=== PATIENT | female | born 1965 | race Caucasian/White ===

== ENCOUNTER 2020-03-26 15:31 | Emergency (ER) | payer OTHER, SELFPAY ==
[2020-03-26 15:39] VITALS: BP 136/80; PULSE 81; RESP 16; TEMP 37; O2SAT 100
--- NOTE | 2020-03-26 15:53 | ED.URI ---
HPI - URI/Sore Throat General Stated Complaint: sinus infection Time Seen by Provider: 03/26/20 15:59 Source: patient History of Present Illness HPI Narrative: Patient presents with nasal congestion sinus pressure cough fever body aches and fatigue for the last week. Patient has tried Sudafed [id number] with minimal relief in her symptoms. 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 Patient denies any shortness of breath and no chest pain. MD elicited complaint: cough Related Data Allergies Allergy/AdvReac Type Severity Reaction Status Date / Time No Known Allergies Allergy Verified 03/26/20 15:41 Review of Systems Review of Systems: Narrative: CONSTITUTIONAL: Denies chills, or sweats. Reports fever and generalized body aches EYES: Denies visual changes, redness, or discharge. ENT: Denies otalgia. Reports nasal congestion runny nose and sore throat CARDIOVASCULAR: Denies chest pain, palpitations, or edema. RESPIRATORY: Denies dyspnea. Reports occasional cough GASTROINTESTINAL: Denies abdominal pain, nausea, vomiting, or diarrhea. GENITOURINARY: Denies dysuria or hematuria. SKIN: Denies rash or itching. MUSCULOSKELETAL: Denies back pain, joint pain, or myalgia. Reports generalized body aches NEUROLOGIC: Denies headache, numbness, or weakness. PSYCHIATRIC: Denies anxiety or depression. [facility] Past Medical History Medical History (Updated 03/26/20 @ 15:58 by PINO Strickland) Colon cancer screening Hypercholesterolemia Vitamin D deficiency Family History Family History Mother Patient's mother is in good health Father Patient's father is in good health Social History Social History Smoking status: Never smoker Alcohol intake: current Comments At time of signature, agree with nursing past medical, surgical, social and family history. There is no relevant family history pertinent to the presenting complaint Exam Narrative: Exam Narrative: The patient is a well-developed, well-nourished in no acute distress. SKIN: Skin is warm and dry without erythema, swelling or exudate. There is good turgor. No tenting. HEAD: Atraumatic. Normocephalic. No temporal or scalp tenderness. EYES: Moist and bright. Sclera and conjunctivae normal. No discharge. PERRLA. Extraocular motions intact. Gross visual acuity intact. EARS: Pinna is normal shape and contour. Clear external auditory canals. TM pearly vasquez with good cone of light, no erythema or suppuration. Bilateral cerumen noted no gross hearing deficit. NOSE: pink, moist mucosa with good air movement. Clear rhinorrhea without nasal flaring. Septum midline. Mild bilateral maxillary sinus tenderness Mouth: moist mucous membranes. THROAT; mild erythema noted to posterior oropharynx with moderate postnasal drainage. Without exudate or ulceration.. Uvula midline. Normal movement of soft palate. NECK: Supple and nontender with full range of motion without discomfort. No meningeal signs. LUNGS: Equal and bilateral breath sounds without wheezes, rales or rhonchi. CHEST: The chest wall is without retractions or use of accessory muscles. HEART: Has a regular rate and rhythm without murmur, gallops, click or rub. ABDOMEN: Soft, nontender with positive active bowel sounds. No rebound tenderness. EXTREMITIES: Without cyanosis, clubbing or edema. Equal 2+ distal pulses and 2 second capillary refill noted. NEUROLOGIC: alert, active, . The patient moves all extremities with normal muscle strength. Normal muscle tone is noted. Normal coordination is noted. NO focal neurological findings noted. Course Vital Signs Vital signs: Vital Signs Temperature 37.0 C 03/26/20 15:39 Pulse Rate 81 03/26/20 15:39 Respiratory Rate 16 03/26/20 15:39 Blood Pressure 136/80 03/26/20 15:39 Pulse Oximetry 100 03/26/20 15:39 Temperature
== END 2020-03-26 16:01 | disposition home or self-care (01) ==
PROVIDERS: Emergency Provider Nurse Practitioner Family; PCP Family Medicine
DX: J01.00 Acute maxillary sinusitis, unspecified (principal); Z20.828 Contact with and (suspected) exposure to other viral communicable diseases; E78.00 Pure hypercholesterolemia, unspecified
CPT/HCPCS: 99213; G0463

== ENCOUNTER 2020-06-07 07:55 | Outpatient (CLI) | payer OTHER, SELFPAY ==
--- NOTE | ~2020-06-07 | MM_ITS ---
EXAMINATION: MM screening alida BI w selina HISTORY: Screening mammogram TECHNIQUE: Craniocaudal and mediolateral oblique 3-D tomosynthesis images were obtained and synthetic 2-D images were generated. Bilateral rotated lateral cc views. CAD analysis was submitted and interp reted. COMPARISON: 04/11/2019 diagnostic right mammogram and limited right breast ultrasound 03/25/2019, 03/21/2018, 03/01/2017 bilateral digital screening mammogram examinations BREAST PARENCHYMAL COMPOSITION: The breasts are heterogeneously dense, which may obscure small masses . FINDINGS: There are scattered bilateral microcalcifications; bilateral magnification views are recomm ended for more definitive evaluation. IMPRESSION: 1. Bilateral microcalcifications 2. Bilateral diagnostic mammography is recommended, with magnification views for better definition of microcalcifications BI-RADS Category 0: Incomplete: Needs additional imaging evaluation. Reviewed, dictated and finalized at location A. N DRIER IMPRESSION: 1. Bilateral microcalcifications 2. Bilateral diagnostic mammography is recommended, with magnification views fo r better definition of microcalcifications BI-RADS Category 0: Incomplete: Needs additional imaging evaluation.
== END 2020-06-07 07:56 | disposition home or self-care (01) ==
LOC: ANHIMG 07:57
PROVIDERS: PCP Family Medicine; Visit Provider Obstetrics & Gynecology
DX: Z12.31 Encounter for screening mammogram for malignant neoplasm of breast (principal); R92.8 Other abnormal and inconclusive findings on diagnostic imaging of breast
CPT/HCPCS: 77063; 77067

== ENCOUNTER 2020-07-02 12:21 | Outpatient (CLI) | payer OTHER, SELFPAY ==
--- NOTE | ~2020-07-02 | MMUS_ITS ---
EXAMINATION: MM diagnostic mammo BI, US breast BI complete HISTORY: Bilateral microcalcifications reported on 06/07/2020 screening mammogram TECHNIQUE: Additional 3-D tomosynthesis images of both breasts were performed and synthetic 2-D image s were generated. Bilateral magnification views. CAD analysis was submitted and interpreted. High res olution complete bilateral breast ultrasound was performed. COMPARISON: 06/07/2020 bilateral digital screening mammogram FINDINGS: MAMMOGRAPHIC FINDINGS: There are numerous scattered bilateral benign-appearing microcalcifications, some solitary, many in g roups. Most are rounded and punctate. No malignant features are evident. Heterogeneously dense stroma may obscure masses. Bilateral complete breast ultrasound examination was performed. ULTRASOUND: Right breast: 12:00: 4 x 2.8 x 3.7 mm sonolucency, without internal vascularity, consistent with a small cyst Left breast: 3.2 x 3.1 mm rounded sonolucency without internal vascularity, consistent with small cys t No suspicious mass or shadowing of either breast is evident. IMPRESSION: 1. No mammographic evidence of malignancy 2. Routine annual mammographic screening is recommended. BI-RADS Category 2: Benign finding(s). Reviewed, dictated and finalized at location A. AUDITOR IMPRESSION: 1. No mammographic evidence of malignancy 2. Routine annual mammographic screening is recommended. BI-RADS Category 2: Benign finding(s).
== END 2020-07-02 12:22 | disposition home or self-care (01) ==
PROVIDERS: PCP Family Medicine; Visit Provider Obstetrics & Gynecology
DX: N63.15 Unspecified lump in the right breast, overlapping quadrants (principal); N63.20 Unspecified lump in the left breast, unspecified quadrant
CPT/HCPCS: 76641; 77066

== ENCOUNTER 2021-06-09 16:24 | Outpatient (CLI) | payer OTHER, SELFPAY ==
--- NOTE | ~2021-06-09 | MM_ITS ---
EXAMINATION: MM screening alida BI w selina HISTORY: Screening TECHNIQUE: Craniocaudal and mediolateral oblique 3-D tomosynthesis images were obtained and synthetic 2-D images were generated. CAD analysis was submitted and interpreted. COMPARISON: Comparison to multiple prior studies sequentially, with oldest reviewed study dated 02/18. BREAST PARENCHYMAL COMPOSITION: There are scattered areas of fibroglandular density. FINDINGS: There is no evidence of suspicious mass, calcification, or architectural distortion to sugg est malignancy in either breast. There has been no suspicious interval change. IMPRESSION: 1. No mammographic evidence of malignancy. 2. Recommend routine screening mammography in one year. BI-RADS Category 1: Negative Reviewed, dictated and finalized at location A. MOLD MACHINE OPERATOR
== END 2021-06-09 16:25 | disposition home or self-care (01) ==
LOC: ANHIMG 16:26
PROVIDERS: PCP Family Medicine; Visit Provider Obstetrics & Gynecology
DX: Z12.31 Encounter for screening mammogram for malignant neoplasm of breast (principal)
CPT/HCPCS: 77063; 77067

== ENCOUNTER 2022-11-15 10:31 | Emergency (ER) | payer OTHER, SELFPAY ==
--- NOTE | ~2022-11-15 | XR_ITS ---
EXAMINATION: XR hand RT min 3V INDICATION: Right hand pain TECHNIQUE: Three views of the right hand are obtained. COMPARISON: None available FINDINGS: Bone alignment is normal. There is no fracture. 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 The soft tissues are unremarkable. IMPRESSION: 1. No acute osseous abnormality. Reviewed, dictated and finalized at location []
[2022-11-15 10:42] VITALS: BP 150/96; PULSE 84; RESP 16; TEMP 36.9; O2SAT 99
--- NOTE | 2022-11-15 11:23 | ED.UPPEXIN ---
HPI - Extremity Injury (Upper) General Chief Complaint: Extremity Injury, Upper Stated Complaint: R HAND INJURY Time Seen by Provider: 11/15/22 11:25 Source: patient Mode of arrival: ambulatory Limitations: no limitations History of Present Illness HPI narrative: 57-year-old female presented for complaint of right hand pain to the middle, ring and little fingers after injury last night. She states she tripped in her garage while attempting to walk underneath the garage door, and landed on the right hand pending the fingers back. She endorses bruising and swelling with slight decreased range of motion. She has taken ibuprofen. She denies numbness, tingling, or weakness. Related Data Home Medications Medication Instructions Recorded Confirmed No Home Medications 11/15/22 11/15/22 Allergies Allergy/AdvReac Type Severity Reaction Status Date / Time No Known Allergies Allergy Verified 11/15/22 11:03 Review of Systems Review of Systems: CONSTITUTIONAL: Denies body aches, fever, chills EYES: Denies visual changes ENT: Denies rhinorrhea, congestion CARDIOVASCULAR: Denies chest pain, palpitations, or edema. RESPIRATORY: Denies cough or dyspnea. GASTROINTESTINAL: Denies abdominal pain, nausea, vomiting, or diarrhea. SKIN: Denies rash, itching, or wounds. MUSCULOSKELETAL: per HPI NEUROLOGIC: Denies headache, numbness, tingling, or weakness. All systems reviewed & are unremarkable except as noted in HPI and below PMFSH Past Medical History Medical History Colon cancer screening Hypercholesterolemia Vitamin D deficiency Family History Family History Mother Patient's mother is in good health Father Patient's father is in good health Social History Social History Smoking status: Never smoker Alcohol intake: current Comments At time of signature, I have reviewed and agree with nursing past medical, surgical, social and family history unless otherwise noted. Please see nursing chart for further information. There is no relevant family history pertinent to the presenting complaint Exam Narrative: GENERAL: Well-appearing, well-nourished, and in no acute distress. CHEST: Speaks in full sentences. No respiratory distress. HEART: Regular rate and rhythm. Normal and equal peripheral pulses. EXTREMITIES: Right hand has Mild swelling, ecchymosis, and tenderness to 3rd 4th and 5th MCPs; slightly decreased range of motion at MCPs due to pain with movement. 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 Hand and fingers with normal sensation. No open wounds, or obvious deformity; alignment normal, pulse palpable and equal bilaterally, skin warm, dry, pink. Capillary refill less than 3 seconds. SKIN: Warm, dry, no rash. NEURO: Alert and oriented x3. PSYCH: Normal mood and affect Course Course Emergency Course: Patient is aware of diagnosis, understands and agrees to treatment plan. Anticipatory guidance given. Patient agrees to follow-up as directed and is aware of reasons to seek care at the emergency department. Portions of this record may have been created with voice recognition software Level of Care: Express Care Visit Vital Signs Vital signs: Vital Signs Temperature 98.5 F 11/15/22 10:42 Pulse Rate 84 11/15/22 10:42 Respiratory Rate 16 11/15/22 10:42 Blood Pressure 150/96 H 11/15/22 10:42 Pulse Oximetry 99 11/15/22 10:42 Temperature 98.5 F 11/15/22 10:42 Pulse Rate 84 11/15/22 10:42 Respiratory Rate 16 11/15/22 10:42 Blood Pressure 150/96 H 11/15/22 10:42 Pulse Oximetry 99 11/15/22 10:42 Oxygen Delivery Room Air 11/15/22 10:54 Reviewed MDM - Extremity Injury (Upper) MDM Narrative Medical decision making narrative: Results of x-ray reviewed with patient. Eduardo yipap applanika
--- NOTE | 2022-11-15 11:38 | PC.NURSE ---
+PMS POST FERMIN APPLICATION
== END 2022-11-15 11:38 | disposition home or self-care (01) ==
PROVIDERS: Emergency Provider Nurse Practitioner Family; PCP Internal Medicine
DX: S63.652A Sprain of metacarpophalangeal joint of right middle finger, initial encounter (principal); W01.0XXA Fall on same level from slipping, tripping and stumbling without subsequent striking against object, initial encounter; E78.00 Pure hypercholesterolemia, unspecified
CPT/HCPCS: 73130; 99213; G0463

== ENCOUNTER 2023-01-24 15:58 | Outpatient (CLI) | payer OTHER, SELFPAY ==
--- NOTE | ~2023-01-24 | MM_ITS ---
EXAMINATION: MM screening alida BI w selina HISTORY: Screening mammogram TECHNIQUE: Craniocaudal and mediolateral oblique 3-D tomosynthesis images were obtained and synthetic 2-D images were generated. CAD analysis was submitted and interpreted. COMPARISON: 04/09/2022 bilateral screening mammogram To bilateral diagnostic mammography and bilateral complete breast ultrasound examination 06/07/2020 bilateral screening mammogram BREAST PARENCHYMAL COMPOSITION: There are scattered areas of fibroglandular density. FINDINGS: Scattered bilateral punctate benign-appearing microcalcifications. There is no evidence of suspicious mass, calcification, or architectural distortion to suggest malignancy in either breast. T here has been no suspicious interval change. IMPRESSION: 1. No mammographic evidence of malignancy. 2. Recommend routine screening mammography in one year. BI-RADS Category 2: Benign finding(s). Reviewed, dictated and finalized at location A.
== END 2023-01-24 15:59 | disposition home or self-care (01) ==
LOC: ANHIMG 16:01
PROVIDERS: PCP Internal Medicine; Visit Provider Obstetrics & Gynecology
DX: Z12.31 Encounter for screening mammogram for malignant neoplasm of breast (principal)
CPT/HCPCS: 77063; 77067

== ENCOUNTER 2023-12-06 10:45 | Emergency (ER) | payer OTHER, SELFPAY ==
--- NOTE | 2023-12-06 10:46 | ED.FEMALEGU ---
HPI - Female Genitourinary General Chief complaint: Urogenital-Female Stated complaint: Uti Symptoms Time Seen by Provider: 12/06/23 10:46 Source: patient Mode of arrival: ambulatory Limitations: no limitations History of Present Illness HPI Narrative: Awilda is a 58-year-old female patient presenting to the clinic today with complaints of UTI like symptoms for 2 days. She was recently treated for a sinus infection with amoxicillin when she noticed her urinary symptoms started shortly afterwards. She started taking OTC azo yesterday. She reports urinary frequency, urgency, and burning with urination. She also reports mild flank pain. She denies any fevers/chills, SOB, chest pain, or genital itching. Related Data Allergies Allergy/AdvReac Type Severity Reaction Status Date / Time No Known Allergies Allergy Verified 12/06/23 10:55 Review of Systems Review of Systems: Pertinent positives per HPI. Patient denies any fever, chills, rash, headache, visual changes, dizziness, cough, runny nose, sore throat, shortness of breath, chest pain, palpitations, nausea, vomiting, diarrhea, constipation, abdominal pain PMFSH Past Medical History Medical History Colon cancer screening Hypercholesterolemia Vitamin D deficiency Family History Family History Mother Patient's mother is in good health Father Patient's father is in good health Social History Social History Smoking status: Never smoker Alcohol intake: current Comments At the time of my signature, I reviewed and agree with the nursing past medical, surgical, social, and family history. There is no relevant family history pertinent to the patient complaint. Exam Narrative: General: Well-developed, well nourished, in no apparent distress. Head: Normocephalic, atraumatic. Cardio: Regular rate and rhythm, s1 and s2 normal, no murmur appreciated. Resp: Clear to auscultation bilaterally, no rhonchi, rales, wheezing or rubs. Abdomen: No CVA tenderness Course Course Emergency Course: Portions of this record may have been created with voice recognition software. Level of Care: Express Care Visit Vital Signs Vital signs: Vital signs reviewed MDM - Female Genitourinary MDM Narrative Medical decision making narrative: At the time of visit patient is resting comfortably on the exam table. Patient appears to be nontoxic. Labs: UA is positive for trace of blood, leukocytes, and nitrates. Will send for culture. Plan: I suspect patient has urinary tract infection. Prescription for Bactrim was sent to the pharmacy. Supportive measures were discussed with the patient and they voiced understanding discharge instructions and agrees to treatment plan. Return precautions reviewed Differential Diagnosis Differential diagnosis: Likely urinary tract infection, cystitis and other (Pyelonephritis) Discharge Plan Discharge Clinical Impression: UTI (urinary tract infection) Qualifiers: Urinary tract infection type: acute cystitis Hematuria presence: with hematuria Qualified Code(s): N30.01 - Acute cystitis with hematuria Patient Disposition: Home, Self-Care Condition: Stable Instructions: Antibiotic Form, Urinary Tract Infection in Women (ED) Additional Instructions: UA positive for leukocytes, blood, and nitrates. We will send urine for culture. Take Bactrim as prescribed Increase fluids and stay well hydrated Wipe front to back. May use wet wipes. Avoid tub baths If sexually active- pee before and after intercourse. Wear cotton panties Avoid tight clothing up against the genitals Follow up with your PCP in 1 week if symptoms persist. Prescriptions: New sulfamethoxazole-trimethoprim [Bactrim DS] 800-160 mg tablet 1 tablet PO Q12H 5 Days Qty: 10 0RF
[2023-12-06 10:52] VITALS: BP 143/86; PULSE 85; RESP 16; TEMP 37.1; O2SAT 96
[2023-12-06 12:10] LABS: EDUAAPPEAR Clear; EDUABILI Negative; EDUABLOOD Trace; EDUACOLOR1 Orange; EDUAGLUCOSE Negative; EDUAKETONE Negative; EDUALEUKO 3+; EDUANITRATE Positive; EDUAPH 5.5; EDUAPROTEIN Negative
== END 2023-12-06 11:22 | disposition home or self-care (01) ==
PROVIDERS: Emergency Provider Nurse Practitioner Family; PCP Internal Medicine
DX: N30.01 Acute cystitis with hematuria (principal); B96.20 Unspecified Escherichia coli [E. coli] as the cause of diseases classified elsewhere; E78.00 Pure hypercholesterolemia, unspecified
CPT/HCPCS: 81003; 87077; 87086; 87088; 87186; 99213; G0463

== ENCOUNTER 2024-05-06 09:07 | Outpatient (CLI) | payer OTHER, SELFPAY ==
--- NOTE | ~2024-05-06 | XR_ITS ---
XR shoulder LT min 2V Ordering provider: Mone Wong APRN History: . Pain in left shoulder and neck after falling off of a chair . Comparison: None. FINDINGS: BONES: No acute fracture or dislocation. JOINT SPACES: The acromioclavicular joint is normal. The glenohumeral joint is normal. SOFT TISSUES: Normal. IMPRESSION: No acute osseous abnormality left shoulder. Reviewed, dictated and finalized at location A. ET ASSEMBLY PRESS SETTER OPERATOR
--- NOTE | ~2024-05-06 | XR_ITS ---
[id number] Ordering provider: Mone Wong APRN History: . M54.2 - Cervicalgia . Comparison: None. FINDINGS: VERTEBRAL BODIES: Normal height and alignment. No visible fracture or subluxation. The dens is intact . DISK SPACES: Narrowing of C5-C6. Uncovertebral joint osteoarthritic changes at the same level. Facet joint disease seen at the level of C7-T1. A PARASPINOUS SOFT TISSUES: No prevertebral soft tissue swelling. IMPRESSION: No acute osseous abnormality cervical spine. Degenerative disc disease at the level of C5-C6. Reviewed, dictated and finalized at location A. ED FRUIT PACKER
== END 2024-05-06 09:08 | disposition home or self-care (01) ==
LOC: ANHBWCIMG 09:09
PROVIDERS: PCP Nurse Practitioner Adult Health; Visit Provider Nurse Practitioner Adult Health
DX: M25.512 Pain in left shoulder (principal); M50.322 Other cervical disc degeneration at C5-C6 level
CPT/HCPCS: 72040; 73030

== ENCOUNTER 2024-06-20 14:36 | Outpatient (CLI) | payer OTHER, SELFPAY ==
--- NOTE | ~2024-06-20 | MM_ITS ---
EXAMINATION: MM screening [facility] BI w selina HISTORY: Screening TECHNIQUE: Craniocaudal and mediolateral oblique 3-D tomosynthesis images were obtained and synthetic 2-D images were generated. CAD analysis was submitted and interpreted. COMPARISON: Comparison to multiple prior studies sequentially, with oldest reviewed study dated 09/2018. BREAST PARENCHYMAL COMPOSITION: There are scattered areas of fibroglandular density. FINDINGS: There is no evidence of suspicious mass, calcification, or architectural distortion to sugg est malignancy in either breast. There has been no suspicious interval change. IMPRESSION: 1. No mammographic evidence of malignancy. 2. Recommend routine screening mammography in one year. BI-RADS Category 1: Negative Reviewed, dictated and finalized at location A. NG ROOM OPERATOR
--- OUTSIDE RECORDS SUMMARY | 2024-06-20 14:42 | XMS_ITS | Data Portability ---
Author Organization [place] [facility], Main Office Address [address] [place] [address] Care Team Providers Care Pulp Operator Name Role Phone REMA KATE Primary Care Provider REMA KATE Referring Provider [phone] Assessment Encounter Date Assessment Date Assessment LastModified by Organization Details LastModified Time 03/19/2023 03/19/2023 HPI: 57-year-old female came in for evaluation of her right 3rd 4th and 5th finger. she injured these fingers in October of this year. She states that she was running to beat the garage door from closing when she fell and her hand hit the ground and these 3 fingers hit the ground and were hyper extended very quickly. She had immediate pain in the 3 fingers. She started noticing swelling in the fingers and the MP joints. The next day on 11/15 she went to the emergency room had x-rays done which I reviewed. They show no fractures in the fingers. There is no evidence of injury to the joints. Her chief complaint is that she still has problems extending her fingers without discomfort. 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 Physical exam: Patient has no swelling in the fingers hand or wrist. Full range of motion of the wrist. She has flexion of all of her fingers actively. She is not able to make a complete tight fist yet. She has pain with extension especially hyperextension of the fingers. She very easily hyperextends the left hand to almost 90? ? ? in all of her fingers. On the left hand her index finger does this very easily but she has pain with extension of the long ring and small finger. The ring finger is the stiffest. I am able to extend her up almost 80? ? ? but it is uncomfortable for her. No swelling in the fingers. She has some mild tenderness to the PIP joints in these 3 fingers. There is no increase swelling in the joints. No redness or warmth noted anywhere. Impression: Patient had hyperextension injury to the 3rd 4th and 5th finger in the left hand back in October. She does have full flexion of all her fingers but is still lacking hyper extension that she is used to. She is able hyperextend them but it is sore and painful to do this. She states after the injury her fingers are quite swollen for a while and I think this is just residual stiffness from this. There is no bony abnormalities noted on the x-rays. I recommended that she work hard on passively stretching her fingers in extension every day. This will stretch out the tendons and should get her lot more comfortable. 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 She was concerned about fracture is being missed on the x-rays and I assured her that I see nothing on the x-rays that were taken. She is comfortable with all this and is going to work on stretching the fingers out. If she has any questions concerns or if things worsen she will call otherwise we will see her back as needed. [email or web address] Not available 03/19/2023 18:33:34 Plan of Treatment Reminders Order Date Submit Date Provider Last Modified By Organization Details Last Modified Time Details Appointments None record ed. Lab None record ed. Referral None record ed. Procedures None record ed. Surgeries None record ed. Imaging None record ed. Medication Orders None record ed. Patient TargetsNo targets recorded. Patient InstructionsNo instructions recorded. Reason for Referral None Reported. Results Created Date Observation Date Name Description Value Unit Range Abnormal Flag Note LastModifiedBy Organization Detail LastModifiedTime 02/01/2001/31/2022 kishore esquivel am No observ ation record ed. [id number].[id number] [facility] [address] [place], [place], [address], 07/20/2022 00:31:46 02/01/20 kishore esquivel am No observ ation record ed. [id number].[id number] [facility] [address] [place], [place], [address], 07/20/2022 00:31:46 11/16/19 23 11/15/2022 XR, hand No observ ation record ed. [address], [place], [address], 06/09/2023 12:45:23 01/25/20 23 01/24/2023 MAMMO , scree clarisa, digit al, bilat eral No observ ation record ed. [address], [place], [address], 06/09/2023 12:45:24 03/19/20 23 11/15/2022 XR, hand No observ ation record ed. [email or web address] Not Available 2022 18:39:10 08/31/19 24 08/31/2023 XR, foot, 3 or more view No observ ation record ed. [email or web address] [address], [address], 12/04/2023 08:44:12 Result Notes None recorded. Problems Name Problem SNOMED Code Status Onset Date Resolution Date Notes Provider Name and Address Organization Details Recorded Time Adult health examinatio n Active 2021 Not Available [facility] 3 00:29:45 Cough 80241683 Active 2021 Not Available [facility] 3 00:29:45 Hand pain 20704755 Active 2022 Dolores lopez, [facility] 3 17:13:19 Pain in right hand 1844077012120 09 Active 2022 ZEKE Brandon, [facility] 3 16:47:15 Problem Notes None recorded. Procedures Surgical History Date Name Laterality Status Provider Name and Address Organization Details Recorded Time Foot Surgery completed Not Available [facility] 07/20/2022 00:28:29 Hysterectomy completed Not Available [facility] 07/20/2022 00:28:29 [place] [facility] 00:28:29 Appendectomy completed Not Available [facility] 07/20/2022 00:28:29 completed Not Available [facility] 0 07/20/2022 00:28:29 Imaging Results Imaging Date Name Status LastModified by Organization Details LastModified Time 01/31/2022 electrocardiogram completed MIGRATION. [id number] [facility] [address] [place], [address], 07/20/2022 00:31:46 01/31/2022 electrocardiogram completed MIGRATION. [id number] [facility] [address] [place], [place], [address], 07/20/2022 00:31:46 11/15/2022 XR, hand completed [address], [address], 06/09/2023 12:45:23 01/24/2023 MAMMO, screening, digital, bilateral completed [address], [address], 06/09/2023 12:45:24 11/15/2022 XR, hand completed [email or web address] Information no t available 03/19/2023 18:39:10 08/31/2023 XR, foot, 3 or more view completed [email or web address] [address], [address], 12/04/2023 08:44:12 Procedure Notes None recorded. Medical Equipment None Reported. Allergies No known drug allergies Medications Name Sig Start Date Stop Date Status Note LastModified by Organization Details LastModified Time azithromyci n 250 mg tablet TK 2 TS PO ON DAY 1, THEN TK 1 T PO D FOR 4 DAYS 06/28 completed Not Available Not Available Not Available benzonatate 200 mg capsule TAKE 1 CAPSULE BY MOUTH THREE TIMES DAILY 01/31 completed Not Available Not Available Not Available prednisone 20 mg tablet TAKE 2 TABLETS BY MOUTH EVERY DAY 01/31 completed Not Available Not Available Not Available benzonatate 100 mg capsule TAKE 1 CAPSULE BY MOUTH THREE TIMES DAILY NEEDED FOR COUGH 06/28 completed Not Available Not Available Not Available erythromyci n 5 mg/gram (0.5 %) eye ointment 03/19 completed Not Available Not Available Not Available mupirocin 2 % topical ointment APPLY TOPICALLY TO THE AFFECTED AREA THREE TIMES DAILY FOR 10 DAYS 06/28 completed Not Available Not Available Not Available methylpredn isolone 4 mg tablets in a dose pack FOLLOW PACKAGE DIRECTION S 01/31 completed Not Available Not Available Not Available amoxicillin 875 mg-potassiu m clavulanate 125 mg tablet TAKE 1 TABLET BY MOUTH EVERY 12 HOURS 03/19 completed Not Available Not Available Not Available Vitals Date Recorded Body mass index (BMI) Body mass index (BMI) Body height Body height Heart rate Heart rate Body temperature Body temperature Body weight Body weight Systolic blood pressure Diastolic blood pressure Systolic blood pressure Diastolic blood pressure Provider Name and Address Organization Details Last Updated DateTime 3 34.3 kg/m2 34.7 kg/m2 162.56 cm 162.56 cm 72 /min 96 /min 97.7 [degF] 97.6 [degF] 24065.4 7 g 07373.6 6 g 126 mm[Hg] 70 mm[Hg] 124 mm[Hg] 76 mm[Hg] Not Available [facility] 00:28:50 Social History Question Answer Notes LastModified by Organizat ion Details LastModified Time Tobacco Smoking Status Never Smoker Not Available [facility] 07/20/2022 00:27:54 Do You Have An Advance Directive? No MIGRATION.41645 [id number] Information not available 07/20/2022 What Is Your Level Of Alcohol Consumption? Occasional MIGRATION.38958 46645 Information not available 07/20/2022 Do You Wear A Helmet When Biking? No MIGRATION.03845 15611 Information not available 07/20/2022 What Is Your Level Of Caffeine Consumption? Moderate MIGRATION.62267 41660 Information not available 07/20/2022 In The 14 Days Before Symptom Onset, Have You Had Close Contact With A Laboratory-confi rmed COVID-19 While That Case Was Ill? No MIGRATION.01885 61062 Information not available 07/20/2022 In The 14 Days Before Symptom Onset, Have You Had Close Contact With A Person Who Is Under Investigation For COVID-19 While That Person Was Ill? No MIGRATION.34205 82873 Information not available 07/20/2022 What Type Of Diet Are You Following? REGULAR MIGRATION.98117 71109 Information not available 07/20/2022 What Is The Highest Grade Or Level Of School You Have Completed Or The Highest Degree You Have Received? 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 No MIGRATION.79647 34507 Information not available 07/20/2022 What Is The Fluoride Status Of Your Home? Unknown MIGRATION.85196 04816 Information not available 07/20/2022 Are There Any Guns Present In Your Home? Yes MIGRATION.19528 72352 Information not available 07/20/2022 Do You Use Insect Repellent Routinely? Yes MIGRATION.72345 50168 Information not available 07/20/2022 Where Do You Live? [facility] MIGRATION.14157 94490 Information not available 07/20/2022 Do You Have A Medical Power Of Youth Pastor? No MIGRATION.83442 19373 Information not available 07/20/2022 What Was The Date Of Your Most Recent Tobacco Screening? 01/31/2022 MIGRATION.64853 34552 Information not available 07/20/2022 Have You Ever Been Counseled For Unhealthy Alcohol Use? No MIGRATION.94736 52351 Information not available 07/20/2022 Do You Have Any Pets? Yes MIGRATION.75778 09529 Information not available 07/20/2022 What Is Your Relationship Status? MIGRATION.70732 24650 Information not available 07/20/2022 Do You Use Your Seat Belt Or Car Seat Routinely? Yes MIGRATION.43437 11043 Information not available 07/20/2022 Do You Have Smoke And Carbon Monoxide Detectors In Your Home? Yes MIGRATION.58040 46368 Information not available 07/20/2022 Are You Passively Exposed To Smoke? No MIGRATION.84862 82591 Information not available 07/20/2022 Are There Any Smokers In Your House? No MIGRATION.13257 99203 Information not available 07/20/2022 What Types Of Sporting Activities Do You Participate In? None MIGRATION.68183 86293 Information not available 07/20/2022 Do You Feel Stressed (tense, Restless, Nervous, Or Anxious, Or Unable To Sleep At Night)? SN75223-3 MIGRATION.07964 05426 Information not available 07/20/2022 Do You Use Any Illicit Or Recreational Drugs? No MIGRATION.11323 70780 Information not available 07/20/2022 Do You Use Sunscreen Routinely? Yes MIGRATION.00211 80844 Information not available 07/20/2022 Has Tobacco Cessation Counseling Been Provided? No Not Needed-ne diana Smoked MIGRATION.87550 14496 Information not available 07/20/2022 Have You Recently Traveled Abroad? No MIGRATION.63932 43975 Information not available 07/20/2022 Do You Have Any Dietary Restrictions? No MIGRATION.71067 48404 Information not available 07/20/2022 Do You Or Have You Ever Used Any Other Forms Of Tobacco Or Nicotine? No MIGRATION.64580 96076 Information not available 07/20/2022 Sex: Female Functional Status Question Answer Note LastModified by Organizat ion Details LastModified Time What is your exercise level? Occasional MIGRATION.[id number] 26 Information not available 07/20/2022 Mental Status None recorded. Family History Relationship Description Onset Age of this Age Resolved Age Notes LastModified by Organization Details LastModified Time Mother Hypertensive disorder MIGRATION.379 [id number] Not available 07/20/2022 00:28:31 Mother Hypercholest erolemia MIGRATION.213 [id number] Not available 07/20/2022 00:28:31 Father Hypertensive disorder MIGRATION.922 [id number] Not available 07/20/2022 00:28:31 Father Diabetes mellitus MIGRATION.284 [id number] Not available 07/20/2022 00:28:31 Father Cardiac pacemaker procedure MIGRATION.671 [id number] Not available 07/20/2022 00:28:31 Sister Malignant tumor of breast 51 MIGRATION.732 [id number] Not available 07/20/2022 00:28:31 Daughter Asthma 3 MIGRATION.049 [id number] Not available 07/20/2022 00:28:31 Paternal Grandmother Diabetes mellitus MIGRATION.121 [id number] Not available 07/20/2022 00:28:31 Medical History Condition Response NERVE DISEASE N BLINDNESS N RHEUMATIC FEVER N KIDNEY STONES N BLADDER PROBLEMS N MRSA N OTHER # 1 N POLIO N LUNG DISEASE/DISORDER N HISTORY OF DRUG ABUSE N COPD N RADIATION / CHEMOTHERAPY N Other # 2 N BLOOD DISEASES N EAR OR HEARING PROBLEMS N MUMPS N SHINGLES N BOWEL PROBLEMS N DEPRESSION (INCLUDING POST ) N STROKE/TIA N ULCERS N BENIGN PROSTATIC HYPERPLASIA N MEASLES N HYPOTENSION N MYOCARDIAL INFARCTION N OBESITY N GERD/NAUSEA N ANEURYSM N URINARY/BLADDER/KIDNEY PROBLEMS N CORONARY ARTERY DISEASE (CAD) N ADDICTION CONCERNS N ENDOMETRIOSIS N Impotence N USE OF BLOOD THINNERS N SKIN PROBLEMS N GASTROINTESTINAL DISORDER N PERIPHERAL VASCULAR DISEASE N MUSCLE,JOINT OR BONE PROBLEMS N GASTROINTESTINAL BLEEDING N BLOOD CLOTS N ASTHMA N CATARACTS N ERECTILE DYSFUNCTION N VARICOSITIES N GI PROBLEMS N Low Testosterone N INFERTILITY N AIDS/HIV N CHEMOTHERAPY / RADIATION N LIVER DISEASE N MALE HYPOGONADISM N HYPERTENSION N Deficiency N TOURETTE'S N ANXIETY DISORDER N BLOOD TRANSFUSION N ANEMIA/BLOOD DISORDER N CHRONIC EAR INFECTIONS N BRONCHITIS N TUBERCULOSIS N GLAUCOMA N FOOT PROBLEM N DIVERTICULITIS N CHICKENPOX N SLEEP APNEA N INFECTIOUS DISEASE N HEART ARRHYTHMIA N PROSTATE N INSOMNIA N HIGH CHOLESTEROL / HYPERLIPIDEMIA N HYPERTHYROIDISM N EYE PROBLEMS N EDEMA N CHRONIC PAIN SYNDROME N HYPOTHYROIDISM N CAROTID BLOCKAGE N CONSTIPATION N BACK / NECK PROBLEMS Y ATHEROSCLEROSIS N BREAST PROBLEMS N DIALYSIS N ECZEMA N OSTEOPOROSIS N ARTHRITIS N APPENDICITIS N DIABETES, TYPE N BAD TEETH N ENT N HEARTBURN / REFLUX N AUTISM SPECTRUM DISORDER (ASD) N HEPATITIS / LIVER DISEASE N GOUT N SLEEP DISORDER N ALZHEIMER'S DISEASE N Brain Problems N HERPES N DEMENTIA N HEADACHES/MIGRAINES N SEIZURES/EPILEPSY N VASCULAR DISEASE N PACEMAKER N Blood Disorder N DIZZINESS N HEART DISEASE/HEART PROBLEMS N KIDNEY DISEASE N MULTIPLE SCLEROSIS N CARDIAC ARRHYTHMIA N CANCER: SPECIFY N ATRIAL FIBRILLATION N Gall Stones N PULMONARY EMBOLISM N AUTOIMMUNE DISEASE N Gynecological HistoryNo gynecological history recorded. Obstetrics History GPAL:G 0 P 0 0 0 0 Immunizations Vaccine Type Date Status Note Provider Nam e and Address Organization Details Recorded Time COVID-19, mRNA, LNP-S, PF, 30 mcg/0.3 mL dose 07/16/2020 completed Not Available [facility] 00:31:26 COVID-19, mRNA, LNP-S, PF, 30 mcg/0.3 mL dose 06/25/2020 completed Not Available [facility] 00:31:26 Past Encounters Encounter ID Performer Location Encounter Start Date Encounter Closed Date Diagnosis/Indication Diagnosis SNOMED-CT Code Diagnosis ICD10 Code Diagnosis Note [id number] [facility] [address] [place] [address] 06/28/2021 00:00:00 06/28/2021 22:49:37 [id number] [facility] [address], [place] [address] 01/31/2022 00:00:00 01/31/2022 23:56:25 [id number] JOVANNI Lacey [facility] [address] [place] [address] 03/19/2023 16:32:18 03/19/2023 18:45:07 Pain in right hand 7040012270 64377 M79.641 Health Concerns Section Related Observation LastModified by Organization Detai ls LastModified Time None Recorded Concern Status LastModified by Organization Details LastModified Time None Recorded Advance Directives Directive N: Payers Encounter Date Sequence Insurance Name Policy Number Policy Coleman Covered Member ID Coleman Member ID Guarantor Name 03/19/2023 1 [facility] (POS II) [id number] hCun Martinez [id number] Awilda Martinez OBGyn Episode No OBEpisode recorded.
--- OUTSIDE RECORDS SUMMARY | 2024-06-20 14:42 | XMS_ITS | Clinical Summary ---
Author Organization [facility] [facility] Address [address] [place] [address] Care Team Providers Care Smoking Tobacco Cutter Operator Name Role Phone Unavailable Primary Care Provider Unavailabl e Source Comments [facility],non-owned Affiliates and Associated Physician Practices is amultiple site organization consisting of ambulatory clinics and hospital sitesin [place] and [place]. This disclosure is being madepursuant to the Care Everywhere program and may not contain all information available regarding this patient. Last updated 18.[employer] Allergies No known active allergies Medications Be aware that medications may not be up to date on this document. Always verify current medications with the patient. No known medications Family History Medical History Relation Name Comments Diabetes - Type 2 Father Hypertension Mother Relation Name Status Comments Father Mother Social History Tobacco Use Types Packs/Day Years Used Date Smoking Tobacco: Never Smokeless Tobacco: Never Sex and Gender Information Value Date Recorded Sex Assigned at Not on file Gender Identity Not on file Sexual Orientation Not on file Last Filed Vital Signs Vital Sign Reading Time Taken Comments Blood Pressure 126/78 04/01/2018 10:42 AM COMPENSATOR Pulse 76 04/01/2018 10:42 AM COMPENSATOR Temperature 36.7 ??C (98.1 ??F) 04/01/2018 10:[address] Respiratory Rate 16 04/01/2018 10:42 AM COMPENSATOR Oxygen Saturation 98% 04/01/2018 10:42 AM COMPENSATOR Inhaled Oxygen Concentration - - Weight 79.4 kg (175 lb) 04/01/2018 10:42 AM COMPENSATOR Height 162.6 cm (5' 4 ) 04/01/2018 10:42 AM COMPENSATOR Body Mass Index 30.04 04/01/2018 10:42 AM COMPENSATOR Plan of Treatment Health Maintenance Due Date Last Done Comments COLOGUARD (AGES 45-75) - COL ON CA SCREENING 1966 COLON MONITORING 1966 COLONOSCOPY - COLON CA SCREENING 1966 CT COLONOGRAPHY - COLON CA SCREENING 1966 Colorectal Cancer Screening 1966 FIT - COLON CA SCREENING 1966 FLEX SIG - COLON CA SCREENING 1966 LIPID TESTING 1966 MAMMOGRAM 1966 PAP SMEAR 1966 HIV SCREENING 1981 HEPATITIS C SCREENING 09/28/1984 DTAP/TDAP/TD VACCINES (1 - Tdap) 1985 HEPATITIS B VACCINE (1 of 3 - 19+ 3-dose series) 1985 PNEUMOCOCCAL VACCINE 50+ (1 of 1 - PCV) 2016 ZOSTER VACCINE (1 of 2) 2016 SCREENING FOR DIABETES 05/15/2017 COVID-19 VACCINE (1 - 2023-2 5 season) 2024 INFLUENZA VACCINE (#1) 2024 DEPRESSION SCREENING 05/21/2024 HIB VACCINE Aged Out No longer eligi ble based on patient's age to complete this topic HPV VACCINE Aged Out No longer eligi ble based on patient's age to complete this topic MENINGOCOCCAL (Group B) VACCINE Aged Out No longer eligible based on patient's age to complete this topic MENINGOCOCCAL VACCINE Aged Out No izabella sharon eligible based on patient's age to complete this topic PNEUMOCOCCAL VACCINE Aged Out No long er eligible based on patient's age to complete this topic
--- OUTSIDE RECORDS SUMMARY | 2024-06-20 14:42 | XMS_ITS | Patient Health Summary ---
Author Organization [facility] Address [address] [place] [address] Care Team Providers Care Textile Machinery Sales Representative Name Role Phone Unavailable Primary Care Provider Unavailabl e Note from [facility],non-owned Affiliates and Associated Physician Practices is amultiple site organization consisting of ambulatory clinics and hospital sitesin [place], [place], [place] and [place]. This disclosure is being madepursuant to the Care Everywhere program and may not contain all information available regarding this patient. Last updated 18.[employer] [facility] Allergies No known active allergies Medications Be aware that medications may not be up to date on this document. Always verify current medications with the patient. No known medications Social History Tobacco Use Types Packs/Day Years Used Date Smoking Tobacco: Never Smokeless Tobacco: Never Sex and Gender Information Value Date Recorded Sex Assigned at Not on file Gender Identity Not on file Sexual Orientation Not on file Last Filed Vital Signs Vital Sign Reading Time Taken Comments Blood Pressure 126/78 04/01/2018 10:42 AM RIG OPERATOR Pulse 76 04/01/2018 10:42 AM RIG OPERATOR Temperature 36.7 ??C (98.1 ??F) 04/01/2018 10:[address] Respiratory Rate 16 04/01/2018 10:42 AM RIG OPERATOR Oxygen Saturation 98% 04/01/2018 10:42 AM RIG OPERATOR Inhaled Oxygen Concentration - - Weight 79.4 kg (175 lb) 04/01/2018 10:42 AM RIG OPERATOR Height 162.6 cm (5' 4 ) 04/01/2018 10:42 AM RIG OPERATOR Body Mass Index 30.04 04/01/2018 10:42 AM RIG OPERATOR Procedures * INFLUENZA A+B - POINT OF CARE (AMB)(Performed 05/15/2017) Performed for Acute frontal sinusitis, recurrence not specified Results * INFLUENZA A+B - POINT OF CARE (AMB) (05/15/2017 4:25 PM RIG OPERATOR) Influenza A Antigen Rapid Negative Negative Influenza B Antigen Rapid Negative Negative Influenza Internal Control present NEGATIVE - POSITIVE Influenza Lot Number [id number] Influenza Expiration Date 01 11 2019 Other NASOPHARYNGEAL SWAB / Unknown 05/15/2017 4:25 PM RIG OPERATOR Rajinder Jefferson COMPLIANCE MANAGER-BLOCK TESTER LAB - POINT OF CA RE ORDERABLES
--- OUTSIDE RECORDS SUMMARY | 2024-06-20 14:42 | XMS_ITS | Referral Summary ---
Author Organization [address] Address [address] [place] [address] Care Team Providers Care Mixed Signal Design Engineer Name Role Phone Luis Harley MD Primary Care Provider Encounters Date Type Department Care Team Description 05/27/2024 Telephone [facility] Patient Access [address] [facility] [address] [place] [phone] Luis Harley MD 05/02/2024 Telephone [facility] [address] [place] [address] Arlet Kwong NP Appointment from Last 3 Months Allergies No known active allergies Medications albuterol HFA (PROVENTIL HFA,VENTOLIN HFA,PROAIR HFA) 90 mcg/actuation inhalerIndicatio ns:Lower respiratory tract infection Inhale 2 puffs every 4 (four) hours as needed for shortness of breath or wheezing (cough) 18 g 4 Active inhalational spacing device (Aerochamber MV) spacerIndication s:Lower respiratory tract infection Use with albuterol inhaler 1 each 4 Active Active Problems No known active problems Social History Tobacco Use Types Packs/Day Years Used Date Smoking Tobacco: Never Smokeless Tobacco: Never Alcohol Use Standard Drinks/Week Comments Yes 0 (1 standard drink = 0.6 oz pur e alcohol) Occasional Personal Safety Answer Date Recorded Getting School Help Needed Not on file 06/25 Comments Unknown Sex and Gender Information Value Date Recorded Sex Assigned at Not on file Legal Sex Female 9:53 AM GILL BOX OPERATOR Gender Identity Not on file Sexual Orientation Not on file Last Filed Vital Signs Vital Sign Reading Time Taken Comments Blood Pressure 136/82 01/31/2024 10:25 AM CDT Pulse 90 01/31/2024 10:25 AM CDT Temperature 36.5 ??C (97.7 ??F) 01/31/2024 10:25 AM C DT Respiratory Rate 18 01/31/2024 10:25 AM CDT Oxygen Saturation 96% 01/31/2024 10:25 AM CDT Inhaled Oxygen Concentration - - Weight 95.3 kg (210 lb) 01/31/2024 10:25 AM CDT Height 162.6 cm (5' 4 ) 01/31/2024 10:25 AM CDT Body Mass Index 36.05 01/31/2024 10:25 AM CDT Plan of Treatment Not on file Insurance [facility] CMR Care Teams Mixed Signal Design Engineer Relationship Specialty Start Date End Date Luis Harley MD PCP - General Internal Medicine 10/22/21
--- OUTSIDE RECORDS SUMMARY | 2024-06-20 14:42 | XMS_ITS | Encounter Summary ---
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
--- OUTSIDE RECORDS SUMMARY | 2024-06-20 14:42 | XMS_ITS | Clinical Summary ---
Author Organization [address] Address [address] [place] [address] Care Team Providers Care Fern Picker Name Role Phone Luis Harley MD Primary Care Provider + [phone] Allergies No known active allergies Medications albuterol HFA (PROVENTIL HFA,VENTOLIN HFA,PROAIR HFA) 90 mcg/actuation inhalerIndicatio ns:Lower respiratory tract infection Inhale 2 puffs every 4 (four) hours as needed for shortness of breath or wheezing (cough) 18 g 4 Active inhalational spacing device (Aerochamber MV) spacerIndication s:Lower respiratory tract infection Use with albuterol inhaler 1 each 4 Active Active Problems No known active problems Encounters Date Type Department Care Team Description 05/27/[address] [facility] Patient Access [address] [facility] [address] [place] [phone] Luis Harley MD 05/02/2024 Telephone [facility] [address] [place] [address] Arlet Kwong NP Appointment from Last 3 Months Surgical History Surgery Date Site/Laterality Comments APPENDECTOMY 05/21/1983 - 05/20/1984 HYSTERECTOMY 05/21/2008 - 05/20/2009 SECTION 05/21/2007 - 05/20/2008 TOE SURGERY 05/21/2004 - 05/20/2005 Medical History Medical History Date Comments No known health problems Family History Medical History Relation Name Comments Diabetes Father Hypertension Father Hypertension Mother Relation Name Status Comments Father Alive Mother Alive Social History Tobacco Use Types Packs/Day Years [...] on file 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 Gender Identity Not on file Sexual Orientation Not on file Obstetrics History Last Filed Vital Signs Vital Sign Reading [...] 01/31/2024 10:25 AM CDT Plan of Treatment Health Maintenance Due Date Last Done Comments Breast Cancer Screening-Mammogram 1966 Colon Cancer Screening-Colonoscopy 1966 Depression Screening 1966 Hepatitis C Screening 1966 Regular Well Visit/Exam 18-64 1984 DTaP/Tdap/Td Vaccine (1 - Tdap) 01/28/2003 3 Zoster Vaccine (1 of 2) 2016 Influenza Vaccine (#1) 2024 Pneumococcal vaccine <65 Aged Out No longer eligible based on patient's age to complete this topic Insurance [facility] CMR Care Teams Fern Picker Relationship Specialty Start Date End Date Luis Harley MD PCP - General Internal Medicine 10/22/21
--- OUTSIDE RECORDS SUMMARY | 2024-06-20 14:42 | XMS_ITS | Referral Summary ---
Author Organization [facility] Address [address] [place] [address] Care Team Providers Care Frame Assembler Name Role Phone Unavailable Primary Care Provider Unavailabl e Source Comments [facility],non-owned Affiliates and Associated Physician Practices is amultiple site organization consisting of ambulatory clinics and hospital sitesin [place], [place], [place] and [place]. This disclosure is being madepursuant to the Care Everywhere program and may not contain all information available regarding this patient. Last updated 18[facility] Allergies No known active allergies Medications Be [...] Comments Blood Pressure 126/78 04/01/2018 10:42 AM TAR POT MAN Pulse 76 04/01/2018 10:42 AM TAR POT MAN Temperature 36.7 ??C (98.1 ??F) 04/01/2018 10:[address] Respiratory Rate 16 04/01/2018 10:42 AM TAR POT MAN Oxygen Saturation 98% 04/01/2018 10:42 AM TAR POT MAN Inhaled Oxygen Concentration - - Weight 79.4 kg (175 lb) 04/01/2018 10:42 AM TAR POT MAN Height 162.6 cm (5' 4 ) 04/01/2018 10:42 AM TAR POT MAN Body Mass Index 30.04 04/01/2018 10:42 AM TAR POT MAN Plan of Treatment Not on file
== END 2024-06-20 14:37 | disposition home or self-care (01) ==
PROVIDERS: PCP Nurse Practitioner Adult Health; Visit Provider Obstetrics & Gynecology
DX: Z12.31 Encounter for screening mammogram for malignant neoplasm of breast (principal)
CPT/HCPCS: 77063; 77067

== ENCOUNTER 2025-01-30 17:05 | Emergency (ER) | payer OTHER, SELFPAY ==
--- NOTE | ~2025-01-30 | XR_ITS ---
XR ankle LT min 3V 01/30/2025 17:33 Indication: Left ankle pain Procedure: 4 views left ankle Comparison: No prior studies for comparison. Findings: Ankle mortise intact. Small degenerative calcaneal enthesophyte. No acute fracture, subluxation or dislocation. There is degenerative changes of the ankle. There are postoperative changes in the second and fifth metatarsals. Impression: 1: No acute bone or joint abnormality. Reviewed, dictated and finalized at location O. Impression: 1: No acute bone or joint abnormality.
[2025-01-30 17:20] VITALS: BP 147/95; PULSE 88; RESP 16; TEMP 37; O2SAT 100
--- NOTE | 2025-01-30 17:56 | ED.LOWEXIN ---
HPI - Extremity Injury (Lower) General Chief Complaint: Extremity Injury, Lower Stated Complaint: INJURED L ANKLE Time Seen by Provider: 01/30/25 17:30 Source: patient and RN notes reviewed Mode of arrival: ambulatory Limitations: no limitations History of Present Illness HPI Narrative: 59-year-old female Presents Express Care complaining of injury to left ankle. Patient reports walking in her yd when she tripped and a mole hole and rolled her left ankle. Patient denies any her head, loss of consciousness, neck pain, back pain, or any other injuries. Patient is able to bear weight after the injury. Patient when side and used ice in the noticed that her pain was getting worse he came in for further evaluation. Patient denies any numbness, tingling or any other injuries. Patient denies any significant past medical history. Related Data Allergies Allergy/AdvReac Type Severity Reaction Status Date / Time No Known Allergies Allergy Verified 05/06/24 08:29 Review of Systems Review of Systems: CONSTITUTIONAL: Denies fever, chills, or sweats. EYES: Denies visual changes, redness, or discharge. ENT: Denies rhinorrhea, congestion, sore throat, or otalgia. CARDIOVASCULAR: Denies chest pain, palpitations, or edema. RESPIRATORY: Denies cough or dyspnea. GASTROINTESTINAL: Denies abdominal pain, nausea, vomiting, or diarrhea. GENITOURINARY: Denies dysuria or hematuria. SKIN: Denies rash, wound, or itching. MUSCULOSKELETAL: Denies back pain, joint pain, or myalgia. Positive for left ankle injury and swelling NEUROLOGIC: Denies headache, numbness, or weakness. PSYCHIATRIC: Denies anxiety or depression. All other systems reviewed are negative, except as documented in HPI. [facility] Past Medical History Medical History Allergies Hypercholesterolemia Vitamin D deficiency Colon cancer screening Family History Family History Mother Diabetes mellitus Cerebrovascular accident Disorder of thyroid Father Diabetes mellitus Heart disease Cerebrovascular accident Social History Social History Smoking status: Never smoker Alcohol intake: current Alcohol use details: 8-14 drinks a week Do You Feel Safe in your Home?: Yes Lack of Transportation: No Lack of Food: Never True Current Housing: I Have Housing Concerned About Future Housing: No Difficulty Paying Gas/Electric Bills: No Difficulty Paying for Meds: No Currently Unemployed: No Education: Master's Degree or Higher Difficulty w/ Childcare or Family Care: No Living arrangements: with family 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 There is no relevant family history pertinent to the patient complaint. Exam Narrative: GENERAL: This is a well-nourished, well-developed adult, in no apparent distress. They are non ill-appearing, nontoxic appearing. HEAD: normocephalic, atraumatic. EYES: Sclera clear/white. Vision is grossly intact. Conjunctiva normal. Extraocular movement intact. EARS: External ears normal Hearing grossly intact. NOSE: External nose normal THROAT: Mucous membranes moist NECK: Neck supple CARDIOVASCULAR: Regular rate and rhythm RESPIRATORY: Respiratory rate normal, respiratory effort nonlabored, no respiratory distress NEURO: awake, alert, and oriented to person, place and time. There were no obvious focal neurologic abnormalities. EXTREMITIES: Left ankle: No obvious deformity, injury, bruising, redness. Mild swelling. Mild tenderness to full range of motion. There is tenderness to palpation throughout the ankle. Capillary refill less than 3 seconds. Left pedal Pulse 2 +palpable. Normal sensation. Neurovascular status intact distal injury. Negative Hsieh's test. Patient is able to wiggle her toes. BACK: Nontender without deformity. Course Course Emergency Course: Portions of this record may have been created with voice recognition software Level of Care: Express Care Visit Vital Signs Vital signs: Vital Signs Temperature 98.6 F 01/30/25 17:20 Pulse Rate 88 01/30/25 17:20 Respiratory Rate 16 01/30/25 17:20 Blood Pressure 147/95 H 01/30/25 17:20 Pulse Oximetry 100 01/30/25 17:20 Temperature 98.6 F 01/30/25 17:20 Pulse Rate 88 01/30/25 17:20 Respiratory Rate 16 01/30/25 17:20 Blood Pressure 147/95 H 01/30/25 17:20 Pulse Oximetry 100 01/30/25 17:20 Reviewed MDM - Extremity Injury (Lower) MDM Narrative Medical decision making narrative: X-ray left ankle negative for any fractures or acute findings. Arthritis changes noted to the left ankle. Patient given Eduardo wrap for compression. Offered patient crutches and she declined. Likely ankle sprain. Discussed physical exam findings. Advised supportive measures and signs/symptoms to go to the ER. Pt is appropriate for outpt treatment and f/u. Differential Diagnosis Differential diagnosis: Likely ankle sprain and strain, ankle fracture and other (Foot fracture) Imaging Data Radiologist's impression: ITS Impressions Ankle X-Ray 01/30/25 17:35 Impression: 1: No acute bone or joint abnormality. Critical Care Time Critical Care Time Critical Care Time: No Discharge Plan Discharge Clinical Impression: Injury of left ankle Patient Disposition: Home Condition: Stable Instructions: Antibiotic Form, Ankle Sprain (ED) Additional Instructions: The x-ray of your left ankle is negative for any fracture or acute findings. It Is likely a ankle sprain. Rest and elevate the leg; bear weight as tolerated Apply ice 15-20 minute intervals several times a day Keep it wrapped with EDUARDO or use a soft ankle splint You may take ibuprofen 600 mg to 800 mg every 6-8 hours. Do not exceed more than 800 mg of ibuprofen per dose. Do not exceed more than 3200 mg ibuprofen in a day. You may take up to 1000 mg Tylenol every 6-8 hours. Do not exceed 1000 mg per dose, do exceed more than 4000 mg of Tylenol in a day. Follow up with your primary care provider as needed in 1-2 weeks Patient Language: Macedonian Prescriptions: No Action cyclobenzaprine 5 mg tablet 5 mg PO DAILY PRN (Reason: muscle spasm) Qty: 30 0RF methylprednisolone [Medrol (Reginald)] 4 mg tablets,dose pack See Rx Instructions PO PER PKG DIR Qty: 21 0RF Rx Instructions: PO PER PKG DIR Follow-up/Referrals: Zeferino Caba MD [Physician, Orthopedics] Mone Wong APRN [Primary Care Provider, [facility]] Time of Disposition: 17:55
== END 2025-01-30 18:14 | disposition home or self-care (01) ==
PROVIDERS: PCP Nurse Practitioner Adult Health
DX: S99.912A Unspecified injury of left ankle, initial encounter (principal); W18.42XA Slipping, tripping and stumbling without falling due to stepping into hole or opening, initial encounter; E78.00 Pure hypercholesterolemia, unspecified
CPT/HCPCS: 73610; 99213; G0463